=== PATIENT | female | born 1975 | race Two or more races ===

== ENCOUNTER 2020-03-19 05:30 | Day surgery (SDC) | payer OTHER ==
[~2020-03-19 05:30] MED LIST: SE-TAN PLUS CA1 EACH PO
== END 2020-03-19 15:05 | disposition home or self-care (01) ==
LOC: CIR.AMB 05:30
PROVIDERS: ATTEND Specialist
DX: N84.0 Polyp of corpus uteri (principal); Z20.828 Contact with and (suspected) exposure to other viral communicable diseases